=== PATIENT | male | born 1990 | race Caucasian/White ===

== ENCOUNTER 2017-08-03 20:14 | Emergency (ER) | payer SELFPAY ==
[~2017-08-03] VITALS: Ht 180.3 cm; Wt 77.5 kg
[2017-08-03 20:29] VITALS: BP 137/85; PULSE 73; RESP 16; TEMP 97.8; O2SAT 100
[2017-08-03] MEDS ORDERED: NITR0.4O PR (21:36)
--- NOTE | 2017-08-03 21:42 | PD ---
HPI Chief Complaint: GI Complaint Time Seen by Provider: 20:55 Travel History International Travel<30 days: No Contact w/Intl Traveler<30days: No Traveled to known affect area: No History of Present Illness HPI The patient is a 26-year-old male that has had bright red rectal bleeding for the past 6 months. It got worse today and this is why he came in. He has no insurance and could not see a colorectal surgeon. The patient states it hurts severely when he has a bowel movement. His bowel movements have been soft and almost diarrhea. PFSH Past Medical History Diminished Hearing: No Gastrointestinal Disorders: Yes ([id number] [id number]) Immunizations Current: Yes Tetanus Vaccination: > 5 Years Influenza Vaccination: No Past Surgical History Surgical History: No Previous Surgery Social History Alcohol Use: Yes (OCC) Tobacco Use: No Substance Use: Yes (OCC MARIJUANA) Allergies-Medications (Allergen,Severity, Reaction): Coded Allergies: No Known Allergies (Verified Allergy, Unknown, 08/03/17) Reported Meds & Prescriptions Reported Meds & Active Scripts Active Rectiv (Nitroglycerin (Intra-Anal)) 0.4 % (W/W) Oin 1 Inch IA Q12HR Review of Systems Except as stated in HPI: all other systems reviewed are Neg Physical Exam Narrative GENERAL: Well-nourished, well-developed patient in slight apparent distress with his rectal discomfort. His vital signs are normal. He does not appear anemic. SKIN: Focused skin assessment warm/dry. HEAD: Normocephalic. EYES: No scleral icterus. No injection or drainage. NECK: Supple, trachea midline. No JVD or lymphadenopathy. CARDIOVASCULAR: Regular rate and rhythm without murmurs, gallops, or rubs. RESPIRATORY: Breath sounds equal bilaterally. No accessory muscle use. GASTROINTESTINAL: Abdomen soft, non-tender, nondistended. MUSCULOSKELETAL: No cyanosis, or edema. BACK: Nontender without obvious deformity. No CVA tenderness. RECTAL EXAM: No masses or tenderness, stool is brown. There is tenderness at 6: 00. No abscesses are noted there may be a fissure at 6:00. It is exquisitely tender on rectal exam in this area. Data Data Last Documented VS Vital Signs Date Time Temp Pulse Resp B/P (MAP) Pulse Ox O2 Delivery O2 Flow Rate FiO2 08/03/17 20:46 16 08/03/17 20:29 97.8 73 137/85 (102) 100 MDM Medical Decision Making Medical Screen Exam Complete: Yes Emergency Medical Condition: Yes Medical Record Reviewed: Yes Differential Diagnosis Rectal fissure, perirectal abscess, internal hemorrhoid, external hemorrhoid Narrative Course I did not feel any internal hemorrhoids and I did not see any external hemorrhoids. He has exquisite tenderness at 6:00 and this is likely a rectal fissure. I did not feel a perirectal abscess. Diagnosis Primary Impression: Chronic rectal fissure Additional Instructions: As we discussed, he will need to see it colorectal surgeon about this. You will have to call to set up an appointment and make arrangements for payment. I know you don't have insurance. The Rectiv ointment is applied twice a day, 1 inch. This can have a side effect of headaches and dizziness. It is designed to help heal the fissure quicker. Med/Other Pt SpecificInfo: Prescription(s) given Scripts Nitroglycerin (Intra-Anal) (Rectiv) 0.4 % (W/W) Oin 1 INCH IA Q12HR, #200 ML Prov: Zhang Soto MD 08/03/17 Zhang Soto MD Aug 03, 2017 21:42
[2017-08-03 21:59] VITALS: BP 134/80
== END 2017-08-03 22:03 | disposition home or self-care (01) ==
LOC: PHED 20:14
DX: K62.5 Hemorrhage of anus and rectum (principal); K64.8 Other hemorrhoids
CPT/HCPCS: 99282